=== PATIENT | female | born 1935 | race Caucasian/White ===

== ENCOUNTER 2017-06-10 21:01 | Inpatient (IN) | payer MEDICARE, BC ==
[~2017-06-10] VITALS: Ht 162.6 cm; Wt 75.1 kg
[2017-06-10] MEDS ORDERED: METF500T27 PO (21:30)
[2017-06-10] MEDS ORDERED: POTA10TA90 PO (21:30)
[2017-06-10] MEDS ORDERED: FURO20TA3 PO (21:30)
[2017-06-10] MEDS ORDERED: PRAV80TA2 PO (21:30)
[2017-06-10] MEDS ORDERED: LEVO5TAB29 PO (21:30)
[2017-06-10] MEDS ORDERED: MULT-208 PO (21:30)
[2017-06-10] MEDS ORDERED: WARF7.5T6 PO (21:31)
[2017-06-10] MEDS ORDERED: CYAN200014 PO (21:31)
[2017-06-10] MEDS ORDERED: VERA180C2 PO (21:31)
[2017-06-10] MEDS ORDERED: TRAN2TAB2 PO (21:31)
[2017-06-10] MEDS ORDERED: CHOL2000 PO (21:31)
[2017-06-10 22:23] LABS: ASPARTATE AMINO TRANSFERASE 27 U/L (15-37); BLOOD UREA NITROGEN 15 mg/dL (7-18)
[2017-06-10 22:27] LABS: IS PT STATUS REG ER OR PRE ER? YES
[2017-06-10] MEDS ORDERED: SODIUM CHLORIDE 0.9% 1,000ML IVBOLUS ONE (23:00)
[2017-06-11] MEDS ORDERED: OMNIPAQUE 350 MG/ML, 100ML BOTTLE ONE (00:02)
[2017-06-11] MEDS ORDERED: AZITHROMYCIN 500 MG in SODIUM CHLORIDE 0.9% 250 ML IV ONE (00:30)
[2017-06-11] MEDS ORDERED: CEFTRIAXONE PMX 1GM/50ML 50 ML IV ONE (00:30)
[2017-06-11] MEDS ORDERED: CEFTRIAXONE PMX 1GM/50ML 50 ML ONE (00:32)
[2017-06-11] MEDS: AZITHROMYCIN 500 MG in SODIUM CHLORIDE 0.9% 250 ML IV SCH (02:00)
[2017-06-11] MEDS ORDERED: NS + 20MEQ KCL 1,000 ML IV SCH (02:00)
[2017-06-11] MEDS ORDERED: ONDANSETRON 2MG/ML, 2ML IVPush PRN (02:00)
[2017-06-11] MEDS ORDERED: BISACODYL 10 MG SUPP PR PRN (02:00)
[2017-06-11] MEDS ORDERED: ACETAMINOPHEN 325 MG TABLET PO PRN ×2 (02:00→12:00)
[2017-06-11] MEDS ORDERED: DOCUSATE 100 MG CAPSULE PO PRN (02:00)
[2017-06-11] MEDS: CEFTRIAXONE PMX 1GM/50ML 50 ML IV SCH ×2 (02:00→14:11)
[2017-06-11] MEDS ORDERED: POLYETHYLENE GLYCOL 17 GM PACKET PO PRN (02:00)
[2017-06-11] MEDS ORDERED: DEXTROSE 50%, 50ML SYRINGE IVPush PRN (02:30)
[2017-06-11] MEDS ORDERED: DEXTROSE 4 GM TAB.CHEW PO PRN (02:30)
[2017-06-11] MEDS ORDERED: GLUCAGON 1 MG IM PRN (02:30)
[2017-06-11 03:19] VITALS: BP 149/88
[2017-06-11] MEDS: INSULIN ASPART 100 UNITS/ML, PEN SQ-INSULIN SCH ×4 (07:00→21:00)
[2017-06-11] MEDS: GUAIFENESIN/DM 200-20MG, 10ML UDC PO PRN ×3 (07:49→21:51)
[2017-06-11 09:00] VITALS: BP 129/80
[2017-06-11] MEDS: MULTIVITAMIN 1 TABLET PO SCH (09:00)
[2017-06-11] MEDS: POTASSIUM CHLORIDE 10 MEQ TABLET.ER PO SCH (09:00)
[2017-06-11] MEDS ORDERED: LISINOPRIL 20 MG TABLET PO SCH (09:00)
[2017-06-11] MEDS: VERAPAMIL ER 180MG TABLET.ER PO SCH ×2 (09:00→21:51)
[2017-06-11] MEDS: SODIUM CHLORIDE FLUSH 10ML SYR IVF SCH ×2 (09:00→21:00)
[2017-06-11] MEDS: LEVOCETIRIZINE DIHYDROCHLORIDE 5 MG HOMEMEDPO SCH (09:00)
[2017-06-11] MEDS: CYANOCOBALOMIN 100MCG TABLET PO SCH (09:00)
[2017-06-11] MEDS: CHOLECALCIFEROL 1,000 UNIT TABLET PO SCH (09:00)
[2017-06-11] MEDS: LISINOPRIL 20 MG TABLET PO SCH ×2 (10:47→21:51)
[2017-06-11] MEDS: FUROSEMIDE 20 MG TABLET PO SCH (12:00)
[2017-06-11 14:04] VITALS: BP 109/66
[2017-06-11] MEDS ORDERED: WARFARIN 7.5 MG TABLET PO-COUM SCH (18:00)
[2017-06-11 20:00] VITALS: BP 138/80
[2017-06-11 20:50] VITALS: BP 114/68
[2017-06-11] MEDS ORDERED: PRAVASTATIN 40 MG TABLET PO SCH (21:00)
[2017-06-12] MEDS: CEFTRIAXONE PMX 1GM/50ML 50 ML IV SCH ×2 (01:14→14:00)
[2017-06-12 02:00] VITALS: BP 117/63
[2017-06-12] MEDS: AZITHROMYCIN 500 MG in SODIUM CHLORIDE 0.9% 250 ML IV SCH (02:11)
[2017-06-12 06:24] LABS: BLOOD UREA NITROGEN 12 mg/dL (7-18)
[2017-06-12] MEDS: INSULIN ASPART 100 UNITS/ML, PEN SQ-INSULIN SCH ×3 (07:00→16:00)
[2017-06-12 07:35] VITALS: BP 118/81
[2017-06-12 08:21] VITALS: BP 121/69
[2017-06-12] MEDS: MULTIVITAMIN 1 TABLET PO SCH (08:23)
[2017-06-12] MEDS: LISINOPRIL 20 MG TABLET PO SCH (08:23)
[2017-06-12] MEDS: POTASSIUM CHLORIDE 10 MEQ TABLET.ER PO SCH (08:24)
[2017-06-12] MEDS: FUROSEMIDE 20 MG TABLET PO SCH (08:24)
[2017-06-12] MEDS: CHOLECALCIFEROL 1,000 UNIT TABLET PO SCH (08:25)
[2017-06-12] MEDS: VERAPAMIL ER 180MG TABLET.ER PO SCH (08:25)
[2017-06-12] MEDS: CYANOCOBALOMIN 100MCG TABLET PO SCH (08:25)
[2017-06-12] MEDS: LEVOCETIRIZINE DIHYDROCHLORIDE 5 MG HOMEMEDPO SCH (08:27)
[2017-06-12] MEDS: SODIUM CHLORIDE FLUSH 10ML SYR IVF SCH (08:28)
[2017-06-12] MEDS ORDERED: CEFD300C37 PO (10:34)
[2017-06-12] MEDS: GUAIFENESIN/DM 200-20MG, 10ML UDC PO PRN (10:54)
[2017-06-12 13:21] VITALS: BP 129/82
== END 2017-06-12 17:30 | disposition home or self-care (01) | DRG 871 ==
LOC: ED 23:59 → EDIP 06-11 01:13 → 4EST 06-11 03:33
DX: A41.9 Sepsis, unspecified organism (principal); J96.01 Acute respiratory failure with hypoxia; J11.00 Influenza due to unidentified influenza virus with unspecified type of pneumonia; E44.1 Mild protein-calorie malnutrition; D68.9 Coagulation defect, unspecified; E87.1 Hypo-osmolality and hyponatremia; D68.59 Other primary thrombophilia; J84.9 Interstitial pulmonary disease, unspecified; Z88.6 Allergy status to analgesic agent; E11.9 Type 2 diabetes mellitus without complications; E78.5 Hyperlipidemia, unspecified; I11.9 Hypertensive heart disease without heart failure; I48.2 Chronic atrial fibrillation; K21.9 Gastro-esophageal reflux disease without esophagitis; Z79.01 Long term (current) use of anticoagulants; Z80.8 Family history of malignant neoplasm of other organs or systems; Z85.3 Personal history of malignant neoplasm of breast; Z87.891 Personal history of nicotine dependence
CPT/HCPCS: 36415; 71010; 71275; 80048; 80053; 82962; 83605; 83880; 84484; 85025; 85610; 87040; 93005; 99285; J0456; J0696; J3480; Q9967; J7030; J7050